=== PATIENT | female | born 1980 | race Caucasian/White ===

== ENCOUNTER 2016-09-14 17:04 | Emergency (ER) | payer OTHER ==
[2016-09-14] MEDS ORDERED: methylPREDNISolone NA SUCC 125 MG/2 ML VIAL IVPB ONE (17:05)
[2016-09-14 17:09] VITALS: BMI 35.4
[2016-09-14] MEDS ORDERED: FAMOTIDINE 20 MG/50 ML IVPB 50 ML IVPB ONE ×2 (17:15→17:29)
[2016-09-14] MEDS ORDERED: EPINEPHrine 1:1,000 0.3 MG/0.3 ML SYR IM ONE (17:15)
--- NOTE | 2016-09-14 17:28 | PDOC ---
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 She reports that she ate an apple 2 hours before presenting to the ED and developed chest tightness, diffused hives, swelling and itchiness around her eyes and mild swelling around the mouth. She notes that she took loratadine shortly afterwards which helped to relief her gastric symptoms. She thought the hives would resolve but have persisted. She notes that she has experienced this kind of an allergic reaction with pears in the past but never with apples. The patient denies chest pain, shortness of breath, headache and dizziness. Denies fever, chills, nausea, vomit, diarrhea and constipation. Denies dysuria, frequency, urgency and hematuria. Allergies: Apple, Pear Past surgical history: Gastric bypass Social history: No alcohol, tobacco or drug use reported <Mesfin Herrera - Last Filed: 09/14/16 18:26> - General History Source: Patient Exam Limitations: No Limitations <Renetta Barakat - Last Filed: 09/16/16 08:25> - General Chief Complaint: Allergic Reaction Stated Complaint: ALLERGIC REACTION Time Seen by Provider: 09/14/16 17:05 Past History <Mesfin Herrera - Last Filed: 09/14/16 18:26> - Past Medical History Other medical history: ANAPHYLACTIC SHOCK TO PEARS - Surgical History Abdominal Surgery: Yes (GASTRIC BYPASS) - Psycho/Social/Smoking Cessation Hx Anxiety: No Suicidal Ideation: No Smoking History: Never smoked Hx Alcohol Use: Yes (social) <Renetta Barakat - Last Filed: 09/16/16 08:25> - Past Medical History Allergies/Adverse Reactions: Allergies Allergy/AdvReac Type Severity Reaction Status Date / Time apple Allergy Hives Verified 09/14/16 17:05 pear Allergy Verified 09/14/16 17:05 Home Medications: Ambulatory Orders Epinephrine (Epi-Pen 0.3MG) [Epipen 0.3MG -] 0.3 mg IM ASDIR #2 pens 09/14/16 Famotidine [Pepcid] 20 mg PO DAILY #7 tablet 09/14/16 Loratadine 10 mg PO ASDIR PRN 09/14/16 Prednisone [Deltasone -] 60 mg PO DAILY #12 tablet 09/14/16 Review of Systems - Review of Systems Able to Perform ROS?: Yes Comments:: 09/14/16 18:26 GENERAL/CONSTITUTIONAL: No: fever, chills, weakness, loss of appetite. HEAD, EYES, EARS, NOSE AND THROAT: No: change in vision, ear pain, discharge, sore throat, throat swelling. CARDIOVASCULAR: +Chest tightness. No: lightheadedness, palpitations, syncope RESPIRATORY: No: cough, shortness of breath, wheezing, hemoptysis, stridor. GASTROINTESTINAL: No: nausea, vomiting, abdominal cramping, diarrhea, rectal bleeding, constipation. GENITOURINARY: No: dysuria, hematuria, frequency, urgency, flank pain. MUSCULOSKELETAL: No: back pain, neck pain, joint pain, muscle swelling or pain SKIN AND BREASTS: +Diffused hives. Pruritic swelling bilateral eyes and mouth. No: lesions, pallor, rash or easy bruising. NEUROLOGIC: No: headache, vertigo, paresthesias, weakness ENDOCRINE: No: unexplained weight gain or loss HEMATOLOGIC/LYMPHATIC: No: anemia, easy bleeding, swelling nodes <Mesfin Herrera - Last Filed: 09/14/16 18:26> *Physical Exam - Vital Signs Last Vital Signs Temp Pulse Resp BP Pulse Ox 98.4 F 101 H 20 133/85 96 09/14/16 17:05 09/14/16 17:05 09/14/16 17:05 09/14/16 17:05 09/14/16 17:05 - Physical Exam Comments: 09/14/16 18:27 GENERAL: The patient is in no acute distress. HEAD: Normal with no signs of trauma. EYES: PERRLA, EOMI, sclera anicteric, conjunctiva clear. ENT: Ears normal, nares patent, oropharynx clear without exudates. Moist mucous membranes. Uvula is midline and nonedematous. NECK: Normal range of motion, supple without lymphadenopathy, JVD, or masses. LUNGS: Breath sounds equal, clear to auscultation bilaterally. No wheezes, and no crackles. HEART:Regular rate and rhythm, normal S1 and S2 without murmur, rub or gallop. ABDOMEN: Soft, nontender, normoactive bowel sounds. No guarding, no rebound. EXTREMITIES: Normal range of motion, no edema. No clubbing or cyanosis. No erythema, or tenderness. NEUROLOGICAL: Cranial nerves II through XII grossly intact. Normal speech. No focal neurological deficits. MUSCULOSKELETAL: Back non-tender to palpation, no CVA tenderness SKIN: +Diffused urticaria lesions on chest, back and arms. Warm, Dry, normal turgor. <Mesfin Herrera - Last Filed: 09/14/16 18:26> - Vital Signs Last Vital Signs Temp Pulse Resp BP Pulse Ox 98.4 F 101 H 20 133/85 96 09/14/16 17:05 09/14/16 17:05 09/14/16 17:05 09/14/16 17:05 09/14/16 17:05 <Renetta Barakat - Last Filed: 09/16/16 08:25> ED Treatment Course - Medications Given in the ED: ED Medications Discontinued Medications Generic Name Dose Route Start Last Admin Trade Name Isabela PRN Reason Stop Dose Admin Diphenhydramine HCl 25 mg 09/14/16 17:28 09/14/16 17:20 Benadryl Injection - IVPB 09/14/16 17:29 25 mg ONCE ONE Administration Epinephrine HCl 0.3 mg 09/14/16 17:15 09/14/16 17:15 Epipen 0.3mg - IM 09/14/16 17:16 0.3 mg ONCE ONE Administration Famotidine/Sodium Chloride 50 mls @ 100 mls/hr 09/14/16 17:15 09/14/16 17:30 Pepcid 20 Mg Premixed Ivpb - IVPB 09/14/16 17:44 100 mls/hr ONCE ONE Administration Methylprednisolone Sodium Succinate 125 mg 09/14/16 17:05 09/14/16 17:25 Solu-Medrol - IVPB 09/14/16 17:06 125 mg ONCE ONE Administration <Mesfin Herrera - Last Filed: 09/14/16 18:26> Medical Decision Making - Medical Decision Making 09/14/16 17:21 A portion of this note was documented by scribe services under my direction. I have reviewed the details of the note, within reason, and agree with the documentation with the following case summary and management plan written by me. Nursing documentation reviewed and incorporated into medical decision making This patient presents to the ER with a complaint of allergic reaction She previously had an anaphylactic reaction to Pears She states she ate an apple at 3pm Began to have tingling and tightness in her throat and chest No wheezing or stridor She then developed nausea, no vomiting She took claritin an dnoted minimal improvement in her symptoms Pt presents to the ER for evaluation On examination: Diffuse urticarial lesions of the upper extremities and chest Uvula midline Pt feels fullness in her throat No wheezing or stridor noted Will give: Epinephrine (pt has history of anaphylaxis to pears, feels tightness in her throat, was nauseaous and has diffuse rash) Given at 5:20pm Will give Solumedrol, Pepcid, Benadryl Pt placed on monitor 09/14/16 17:30 09/14/16 17:53 09/14/16 17:56 Pt signed out to Dr Roblero Pending further evaluation s/p Epinephrine Severe allergic reaction <Renetta Barakat - Last Filed: 09/16/16 08:25> *DC/Admit/Observation/Transfer - Attestations Scribe Attestion: 09/14/16 18:27 Documentation prepared by Mesfin Herrera, acting as medical reception specialist for Renetta Barakat MD. <Mesfin Herrera - Last Filed: 09/14/16 18:26> - Discharge Dispostion Admit: No <Renetta Barakat - Last Filed: 09/16/16 08:25> Diagnosis at time of Disposition: Severe allergic reaction Qualifiers: Encounter type: initial encounter Qualified Code(s): T78.40XA - Allergy, unspecified, initial encounter - Discharge Dispostion Disposition: HOME Condition at time of disposition: Stable - Prescriptions Prescriptions: Prednisone [Deltasone -] 60 mg PO DAILY #12 tablet Epinephrine (Epi-Pen 0.3MG) [Epipen 0.3MG -] 0.3 mg IM ASDIR #2 pens Famotidine [Pepcid] 20 mg PO DAILY #7 tablet - Referrals Referrals: Bashir García MD [Staff Physician] - - Patient Instructions Printed Discharge Instructions: DI for General Allergic Reactions Additional Instructions: Thank you for coming in to the ER today Please avoid apples and pears Please keep an EpiPen with you Please take medications as prescribed Please follow up with an parts manager Return to the ER with any other concerns or complaints
[2016-09-14 19:49] VITALS: BP 129/67; PULSE 97; TEMP 98.1
== END 2016-09-14 19:50 | disposition home or self-care (01) ==
LOC: FER 17:04
PROC: 3E033GC Introduction of Other Therapeutic Substance into Peripheral Vein, Percutaneous Approach (ICD-10-PCS; principal; 2016-09-14)
PROC: 3E023GC Introduction of Other Therapeutic Substance into Muscle, Percutaneous Approach (ICD-10-PCS; 2016-09-14)
DX: T78.40XA Allergy, unspecified, initial encounter (principal); Z98.84 Bariatric surgery status
CPT/HCPCS: 84703; 96365; 96372; 96375; 99285-25

== ENCOUNTER 2016-10-07 16:36 | Emergency (ER) | payer OTHER ==
[2016-10-07] MEDS ORDERED: EPINEPHrine 1:1,000 0.3 MG/0.3 ML SYR IM ONE (16:53)
[2016-10-07] MEDS ORDERED: methylPREDNISolone NA SUCC 125 MG/2 ML VIAL IVPB ONE (16:53)
[2016-10-07] MEDS ORDERED: FAMOTIDINE 20 MG/50 ML IVPB 50 ML IVPB ONE ×2 (16:54→20:11)
--- NOTE | 2016-10-07 16:57 | PDOC ---
History of Present Illness - General History Source: Patient, Family, Old Records Exam Limitations: No Limitations <Deepti Mendoza - Last Filed: 10/07/16 17:08> - History of Present Illness Initial Comments: 10/07/16 17:07 - History of Present Illness Initial Comments: 10/07/16 17:05 35 year old female with no significant past medical history. Patient presents to the ED with allergic reaction type symptoms after consuming a peach jennifer at [facility] at approximately 3PM this afternoon. Patient has NKDA but has a known allergy to both apples and pears. Patient states that immediately after consuming the peach jennifer her face became flushed and she began coughing. Patient states that she has not been able to stop coughing since. She additionally admits to some chest tightness and wheezing. Patient recognized her symptoms as the beginning of her typical allergic reactions and immediately drove to the ED because she did not have her EpiPen on her. Patient currently has a URI for which she was seen yesterday at an urgent care. Patient denies any difficulty breathing. Patient denies any throat swelling, lip swelling or facial swelling. Patient denies any hives. Patient is speaking full sentences in the ED. Patients family is with her in the ED. She denies any other complaints at this time, and the remainder of the review of systems is negative <Deepti Mendoza - Last Filed: 10/07/16 17:07> <Nataliia Pina - Last Filed: 10/07/16 18:48> - General Chief Complaint: Allergic Reaction Stated Complaint: ALLERGIC REACTION TO PEACH Time Seen by Provider: 10/07/16 16:53 Past History <Deepti Mendoza - Last Filed: 10/07/16 17:08> - Surgical History Abdominal Surgery: Yes (GASTRIC BYPASS) - Psycho/Social/Smoking Cessation Hx Anxiety: No Suicidal Ideation: No Smoking History: Never smoked Hx Alcohol Use: Yes (social) <Nataliia Pina - Last Filed: 10/07/16 18:48> - Past Medical History Allergies/Adverse Reactions: Allergies Allergy/AdvReac Type Severity Reaction Status Date / Time apple Allergy Hives Verified 09/14/16 17:05 pear Allergy Verified 09/14/16 17:05 Home Medications: Ambulatory Orders Epinephrine (Epi-Pen 0.3MG) [Epipen 0.3MG -] 0.3 mg IM ASDIR #2 pens 09/14/16 Famotidine [Pepcid] 20 mg PO DAILY #7 tablet 09/14/16 Loratadine 10 mg PO ASDIR PRN 09/14/16 Prednisone [Deltasone -] 60 mg PO DAILY #12 tablet 09/14/16 Prednisone [Deltasone -] 20 mg PO DAILY #15 tablet 10/07/16 Review of Systems - Review of Systems Able to Perform ROS?: Yes Comments:: 10/07/16 17:06 Review of systems is as per history of present illness and otherwise negative. <Deepti Mendoza - Last Filed: 10/07/16 17:08> *Physical Exam - Physical Exam Comments: 10/07/16 17:08 *Physical Exam - Physical Exam Comments: 10/07/16 17:06 GENERAL: The patient is awake, alert, speaking full sentences and answering questions, coughing HEAD: Normal with no signs of trauma. EYES: Normal ARMANDO. ENT: Throat is mildly erythematous. Minimal uvula swelling. No facial, eye, lip or tongue swelling. Airway is patent, pt is speaking in full sentences NECK: Normal range of motion, supple without lymphadenopathy. LUNGS: Lungs clear, normal breath sounds. HEART: Regular rate and rhythm, normal S1 and S2 without murmur, rub or gallop. ABDOMEN: Soft, nontender, normoactive bowel sounds. No guarding, no rebound. No masses appreciated. EXTREMITIES: Normal range of motion, no edema. No clubbing or cyanosis. No cords , erythema, or tenderness. NEUROLOGICAL: Cranial nerves II through XII grossly intact. Normal speech, normal gait. Grossly nonfocal neurologic exam. PSYCH: Normal mood, normal affect. SKIN: Skin is mildly erythematous but there are no hives. Warm, dry, normal turgor, no rashes or lesions noted. <Deepti Mendoza - Last Filed: 10/07/16 17:05> <Nataliia Pina - Last Filed: 10/07/16 18:48> ED Treatment Course - Medications Given in the ED: ED Medications Discontinued Medications Generic Name Dose Route Start Last Admin Trade Name Freq PRN Reason Stop Dose Admin Diphenhydramine HCl 50 mg 10/07/16 16:53 10/07/16 16:44 Benadryl Injection - IVPUSH 10/07/16 16:54 50 mg ONCE ONE Administration Epinephrine HCl 0.3 mg 10/07/16 16:53 10/07/16 16:39 Epipen 0.3mg - IM 10/07/16 16:54 0.3 mg ONCE ONE Administration Methylprednisolone Sodium Succinate 125 mg 10/07/16 16:53 10/07/16 16:48 Solu-Medrol - IVPB 10/07/16 16:54 125 mg ONCE ONE Administration <Deepti Mendoza - Last Filed: 10/07/16 17:08> Medical Decision Making - Medical Decision Making 10/07/16 16:56 Patient seen immediately on arrival by me, documentation done later 35-year-old female presents with an acute ALLERGIC reaction She is ALLERGIC to apples in pairs, and had a drink with peach in it and immediately developed her typical ALLERGIC reaction symptoms She did not have an EpiPen with her Patient given EpiPen 0.3, site Medrol 125 mg IV, Benadryl 50 mg IV, and Pepcid 20 mg IV stat 10/07/16 17:10 Patient starting to improve after meds, and the coughing is improving 10/07/16 18:35 Symptoms have completely resolved Mouth and oropharynx completely benign Patient feeling completely back to normal Will observe until 7 PM, and then discharge on prednisone taper, Benadryl, and Pepcid I did recommend to the patient that she see an recreation therapist at this time 10/07/16 18:47 Repeat heart rate 100 <Nataliia Pina - Last Filed: 10/07/16 18:48> *DC/Admit/Observation/Transfer - Attestations Scribe Attestion: 10/07/16 17:07 Documentation prepared by Deepti Mendoza, acting as medical reception specialist for Nataliia Pina MD. <Deepti Mendoza - Last Filed: 10/07/16 17:08> <Nataliia Pina - Last Filed: 10/07/16 18:48> Diagnosis at time of Disposition: Acute allergic reaction - Discharge Dispostion Disposition: HOME Condition at time of disposition: Improved - Patient Instructions Printed Discharge Instructions: DI for General Allergic Reactions Additional Instructions: Prednisone taper as directed-start tonight Benadryl [id number] pill every 6-8 hours Pepcid [id number] pill twice a day Followup with your primary care physician in 24-48 hours Return immediately if you worsen in any way Take your medications as directed Please also follow-up with an recreation therapist as we discussed - Post Discharge Activity Work/School Note: Back to Work
[2016-10-07 17:05] VITALS: TEMP 97.4; BMI 35.1
[2016-10-07 17:10] VITALS: BP 122/87
[2016-10-07 18:47] VITALS: PULSE 100
[2016-10-07] MEDS ORDERED: EPINEPHrine/PF 1 MG/1 ML (1:1,000) AMPULE ONE (20:10)
[2016-10-07] MEDS ORDERED: methylPREDNISolone NA SUCC 125 MG/2 ML VIAL ONE (20:10)
== END 2016-10-07 19:18 | disposition home or self-care (01) ==
LOC: FER 16:36
PROC: 3E023GC Introduction of Other Therapeutic Substance into Muscle, Percutaneous Approach (ICD-10-PCS; principal; 2016-10-07)
PROC: 3E033GC Introduction of Other Therapeutic Substance into Peripheral Vein, Percutaneous Approach (ICD-10-PCS; 2016-10-07)
DX: T78.40XA Allergy, unspecified, initial encounter (principal); X58.XXXA Exposure to other specified factors, initial encounter; Z98.84 Bariatric surgery status
CPT/HCPCS: 99283-25